=== PATIENT | female | born 1950 | race Caucasian/White ===

== ENCOUNTER 2024-01-18 07:34 | Emergency (ER) | payer MEDICARE, SELFPAY ==
--- NOTE | ~2024-01-18 | CT_ITS ---
EXAMINATION: CT brain wo con DATE: 01/18/2024 10:59 INDICATION: Fall this morning. Takes daily low-dose aspirin. TECHNIQUE: Computed tomography (CT) of the head was performed without intravenous contrast. The mA wa s adjusted according to patient size. Iterative reconstruction technique was employed. Exam dose: 60 5.33 mGy-cm total exam DLP. COMPARISON: None FINDINGS: No intracranial mass lesion or hemorrhage, midline shift or mass effect. No subdural or epidural hematoma. No fracture or bone destruction of the cranial vault. The mastoid air cells and included paranasal sinuses are normally developed and aerated. No fracture or bone destruction of the cranial vault. IMPRESSION: No significant abnormality Reviewed, dictated and finalized at [facility]. Reviewed, dictated and finalized at [facility]. IMPRESSION: No significant abnormality
--- NOTE | ~2024-01-18 | XR_ITS ---
XR hip RT 2V w AP pelvis DATE: 01/18/2024 10:03 INDICATION: Fall from a treadmill. Right lateral hip pain. TECHNIQUE: AP pelvis. AP and lateral views of right hip. COMPARISON: None FINDINGS: There is a transitional lumbosacral vertebra. There is levoscoliosis and multilevel degenerative disc disease of the lumbar spine. No pelvic fracture or bone destruction is evident. Normal alignment at the pubic symphysis and sacral iliac joints. Hip joint spaces are symmetric and relatively preserved. No fracture or dislocation, avascular necrosis or bone destruction of the right hip is detected. IMPRESSION: Levoscoliosis and multilevel degenerative disc disease of the lumbar spine Transitional lumbosacral vertebra No pelvic or right hip fracture or dislocation Reviewed, dictated and finalized at [facility]. IMPRESSION: Levoscoliosis and multilevel degenerative disc disease of the lumba r spine Transitional lumbosacral vertebra No pelvic or right hip fracture or dislocation
[2024-01-18 07:45] VITALS: BP 134/67; PULSE 72; RESP 14; TEMP 36.6; O2SAT 100
--- NOTE | 2024-01-18 11:47 | ED.FALL ---
HPI - Fall General Chief Complaint: Fall Stated Complaint: fall Time Seen by Provider: 01/18/24 08:44 Source: patient Mode of arrival: ambulatory Limitations: no limitations History of Present Illness HPI Narrative: 73-year-old here with complaints of fall. Patient states that she was at [facility] this morning, fell off the treadmill as she was unable to control the speed and machine would not stop states that she fell flat on her face. She denies any LOC. Complains of bruising on her chin both elbows and also on the right hip. She denies any chest pain, shortness of breath. complaint: fall Onset (ago): hour(s) (2) Fall from: other ( fell off the treadmill) Fall witnessed: yes, by family ( was at the side) Place fall occurred: other (at the gym) Loss of consciousness: none Prolonged down time: no Symptoms prior to fall: none Location of injury - extremities: Left: lower leg and Bilateral: elbow and thigh Severity: moderate Quality: aching Associated symptoms (after fall): denies Related Data Allergies Allergy/AdvReac Type Severity Reaction Status Date / Time No Known Allergies Allergy Verified 01/18/24 07:48 Exam Narrative: GENERAL: Well-appearing, well-nourished, and in no acute distress. HEAD: Normocephalic, atraumatic. a bruise noted on the chin EYES: PERRLA and EOMI. ENT: Nares clear, no rhinorrhea or epistaxis. Mucous membranes moist. NECK: Supple. CHEST: Clear to auscultation. No respiratory distress. HEART: Regular rate and rhythm. No murmur heard. Normal peripheral pulses. ABDOMEN: Soft, nontender, nondistended, normal active bowel sounds. EXTREMITIES: Normal range of motion. No edema. hematoma in both elbow , left leg SKIN: Warm, dry, no rash. NEURO: No focal deficits. Alert and oriented x3. PSYCH: Normal mood and affect. Course Course Emergency Course: Notified patient and about her CT scan, x-ray findings. Recommended ice, rest, take Tylenol ibuprofen for pain. She does feel comfortable going home Vital Signs Vital signs: Vital Signs Temperature 36.6 C 01/18/24 07:45 Pulse Rate 72 01/18/24 07:45 Respiratory Rate 14 01/18/24 07:45 Blood Pressure 134/67 01/18/24 07:45 Pulse Oximetry 100 01/18/24 07:45 Oxygen Delivery Room Air 01/18/24 07:45 Temperature 36.6 C 01/18/24 07:45 Pulse Rate 72 01/18/24 07:45 Respiratory Rate 14 01/18/24 07:45 Blood Pressure 134/67 01/18/24 07:45 Pulse Oximetry 100 01/18/24 07:45 Oxygen Delivery Room Air 01/18/24 07:45 MDM - Fall Imaging Data My impression: Hip Xray showed no fracture Radiologist's impression: ITS Impressions Head CT 01/18/24 11:11 IMPRESSION: No significant abnormality Discharge Plan Discharge Clinical Impression: Contusion of multiple sites Contusion of face Qualifiers: Encounter type: initial encounter Qualified Code(s): S00.83XA - Contusion of other part of head, initial encounter Patient Disposition: Home, Self-Care Condition: Stable Instructions: Contusion in Adults (ED) Additional Instructions: Ice to the area , can take tylenol or ibuprofen to the area , follow with your doctor as needed. Follow-up/Referrals: Feliz,MD Lawrence [Primary Care Provider] - Time of Disposition: 11:48
== END 2024-01-18 12:18 | disposition home or self-care (01) ==
PROVIDERS: Emergency Provider Family Medicine; PCP Internal Medicine Infectious Disease
DX: S00.83XA Contusion of other part of head, initial encounter (principal); S50.02XA Contusion of left elbow, initial encounter; S50.01XA Contusion of right elbow, initial encounter; S80.12XA Contusion of left lower leg, initial encounter; M51.36 Other intervertebral disc degeneration, lumbar region; W31.89XA Contact with other specified machinery, initial encounter; Y93.A1 Activity, exercise machines primarily for cardiorespiratory conditioning
CPT/HCPCS: 70450; 73502; 99284